=== PATIENT | male | born 1945 | race Caucasian/White ===

== ENCOUNTER 2016-10-17 14:01 | Inpatient (IN) | payer MEDICARE ==
[~2016-10-17] VITALS: Ht 182.9 cm; Wt 59.0 kg
[2016-10-17] VITALS (225 sets, daily range): BP systolic 92–101; BP diastolic 55–67; PULSE 108–113; TEMP 97.6–98.7; O2SAT 73–98
[~2016-10-17 14:01] MED LIST: ASPIRIN 32325 MG/TAB PO; ASPIRIN 81M81 MG/TA2 PO; ASPIRIN E.C. 8181 MG PO; CARDI-OMEGA1000 MG PO; COREG 25MG25 MG/TAB PO; COREG 6.256.25 MG/TA PO; DEXILANT30 MG PO; FISH OIL 1000MG1 CAP PO; FLOMAX 0.40.4 MG/CAP PO; FLORINEF ACETA0.1 MG PO; FLOVENT 110MCG7.9 GM IH; GLUCOTROL10 MG PO; INSHUMULINR SQ; K-DUR 2020 MEQ PO; K-DUR20 MEQ PO; KLOR-CON 1010 MEQ PO; KLOR-CON M2020 MEQ PO; LANTUS100 U/ML SQ; LASIX 20MG TABL20 MG PO; LIPITOR 40MG TA40 MG PO; LIPITOR20 MG PO; LIQUIFILM TEARS15 ML OU; NITROSTAT0.4 MG/TAB SL; NORCO 325 MG-51 TAB PO; NORCO 325 MG-7.1 TAB PO; NORVASC 10MG10 MG PO; NOVOLIN 70/30 710 ML SQ; NOVOLOG 100U100 U/M1 SQ; PLAVIX 75MG TAB75 MG PO; PREDNISONE10 MG PO; PREDNISONE20 MG PO; PRIL40 PO; PRILOSEC 20MG20 MG PO; PRILOSEC10 MG PO; PRINIVIL10 MG PO; PRINIVIL20 MG PO; PROAMATINE 5MG T5 MG PO; REGLAN 10MG10 MG/TAB PO; SYNTHROID0.05 MG/TA PO; ZOLOFT 50MG50 MG PO
[2016-10-17 14:13] LABS: ARTERIAL BLD GAS O2 SATURATION 86.2 % (92-100); ARTERIAL BLD GAS TCO2 CT 26.8; ARTERIAL BLOOD GAS BASE EXCESS -0.4 (-2-2); ARTERIAL BLOOD GAS HCO3 25.3 meq/L (22-26); ARTERIAL BLOOD GAS PHT 7.36 C (7.35-7.45); ARTERIAL BLOOD GAS PO2 54.1 mmHg (80-100); ARTERIAL BLOOD GAS PO2T 54.1 (80-100); ARTERIAL BLOOD GAS pH 7.36 (7.35-7.45); OXYHEMOGLOBIN 84.9 %
[2016-10-17 14:14] LABS: ATS? YES
[2016-10-17 14:25] LABS: MEAN CELL VOLUME 91 fl (80.0-100.0); MEAN CORPUSCULAR HGB CONC 34 g/dl (33.0-37.0); MEAN PLATELET VOLUME 10.3 fl (7.4-10.4); PLATELET COUNT 499 K/mm3 (130-400); RED BLOOD COUNT 3.85 M/mm3 (4.20-5.60); WHITE BLOOD COUNT 12.6 K/mm3 (4.8-10.8)
[2016-10-17 14:26] LABS: ADD PATHOLOGY DIFF REVIEW NO; HEMOGLOBIN 11.8 g/dl (13.5-18.0); MEAN CORPUSCULAR HEMOGLOBIN 31 pg (27.0-31.0)
[2016-10-17 14:36] LABS: ADJUSTED CALCIUM 10.5 mg/dL (8.4-10.2); ALBUMIN 2.8 gm/dL (3.5-5.0); BILIRUBIN,TOTAL 1.2 mg/dL (0.0-1.0); CALCIUM 9.5 mg/dL (8.4-10.2); CREATININE, serum 1.05 mg/dL (0.66-1.25); POTASSIUM 5.1 mmol/L (3.4-5.0); TOTAL PROTEIN 6.3 gm/dL (6.4-8.2)
[2016-10-17 14:36] LABS: BAND 20 % (0-10); NEUTROPHILS 68 % (42.0-75.2); PLATELET ESTIMATE INCREASED (NORMAL); TOTAL CELLS COUNTED 100
[2016-10-17] MEDS ORDERED: ATROVENT I0.2 MG/1 M IH (16:40)
[2016-10-17] MEDS ORDERED: DILAUDID 4MG TAB4 MG PO (16:40)
[2016-10-17] MEDS ORDERED: ALBUTEROL0.83 MG/ML IH (16:41)
[2016-10-18] VITALS (606 sets, daily range): BP systolic 93–153; BP diastolic 70–105; PULSE 70–122; TEMP 98.1–98.6; O2SAT 66–100
[2016-10-18 04:59] LABS: ARTERIAL BLD GAS O2 SATURATION 88.5 % (92-100); ARTERIAL BLD GAS TCO2 CT 21.7; ARTERIAL BLOOD GAS BASE EXCESS -4.9 (-2-2); ARTERIAL BLOOD GAS HCO3 20.5 meq/L (22-26); ARTERIAL BLOOD GAS PHT 7.34 C (7.35-7.45); ARTERIAL BLOOD GAS PO2 58.8 mmHg (80-100); ARTERIAL BLOOD GAS PO2T 58.8 (80-100); ARTERIAL BLOOD GAS pH 7.34 (7.35-7.45)
[2016-10-18 05:00] LABS: ALLEN TEST NO; ATS? YES
[2016-10-18 05:19] LABS: MEAN CELL VOLUME 93 fl (80.0-100.0); MEAN CORPUSCULAR HGB CONC 33 g/dl (33.0-37.0); MEAN PLATELET VOLUME 10.4 fl (7.4-10.4); PLATELET COUNT 475 K/mm3 (130-400); RED BLOOD COUNT 3.24 M/mm3 (4.20-5.60); REDCELL DISTRIBUTION WIDTH-CV 16.1 % (11.5-14.5)
[2016-10-18 05:26] LABS: HEMOGLOBIN 9.9 g/dl (13.5-18.0); MEAN CORPUSCULAR HEMOGLOBIN 31 pg (27.0-31.0)
[2016-10-18 05:27] LABS: ADD PATHOLOGY DIFF REVIEW NO
[2016-10-18 05:30] LABS: INR 1.3 (0.8-3.0); PH 5 (5-8); PROTHROMBIN TIME 14.4 SECONDS (9.7-12.8); SQUAMOUS EPITHELIAL 0-2 /hpf; URINE APPEARANCE Hazy; URINE BACTERIA None Seen /hpf; URINE BILIRUBIN Negative (NEGATIVE); URINE BLOOD Negative (NEGATIVE); URINE COLOR Amber; URINE GLUCOSE Negative (NEGATIVE); URINE KETONE Trace (NEGATIVE); URINE UROBILINOGEN Negative (NEGATIVE)
[2016-10-18 05:31] LABS: ADJUSTED CALCIUM 9.6 mg/dL (8.4-10.2); ALBUMIN 2.5 gm/dL (3.5-5.0); BILIRUBIN,TOTAL 1.1 mg/dL (0.0-1.0); CALCIUM 8.4 mg/dL (8.4-10.2); CREATININE, serum 0.88 mg/dL (0.66-1.25); MAGNESIUM 1.6 mg/dL (1.6-2.3); POTASSIUM 4.7 mmol/L (3.4-5.0); TOTAL PROTEIN 5.7 gm/dL (6.4-8.2)
[2016-10-18 05:32] LABS: AMPHETAMINE URINE NEGATIVE; BARBITURATES URINE NEGATIVE; BENZODIAZEPINES URINE NEGATIVE; BUPRENORPHINE URINE NEGATIVE; METHADONE URINE NEGATIVE; OPIATES URINE POSITIVE; OXYCODONE URINE NEGATIVE; PHENCYCLIDINE URINE NEGATIVE; PROPOXYPHENE URINE NEGATIVE; THC CANNABINOIDS URINE NEGATIVE
[2016-10-18 05:33] LABS: PARTIAL THROMBOPLASTIN TIME 48.4 SECONDS (26.0-37.0)
[2016-10-18 05:45] LABS: BAND 43 % (0-10); NEUTROPHILS 49 % (42.0-75.2); TOTAL CELLS COUNTED 100
[2016-10-19] VITALS (272 sets, daily range): BP systolic 133–147; BP diastolic 74–88; PULSE 100–119; TEMP 97.5–97.8; O2SAT 91–100
[2016-10-21 14:03] VITALS: BP 139/82; PULSE 114; TEMP 97.8
== END 2016-10-21 15:12 | disposition hospice, inpatient (51) | DRG 189 ==
LOC: COL.ER 14:01 → IMCU 16:20 → EU 17:38 → MEDICAL 10-19 15:42
PROVIDERS: Family Medicine; Internal Medicine
DX: J96.21 Acute and chronic respiratory failure with hypoxia (principal); C34.32 Malignant neoplasm of lower lobe, left bronchus or lung; C79.89 Secondary malignant neoplasm of other specified sites; C79.51 Secondary malignant neoplasm of bone; Z68.1 Body mass index [BMI] 19.9 or less, adult; Z66 Do not resuscitate; Z51.5 Encounter for palliative care; I25.10 Atherosclerotic heart disease of native coronary artery without angina pectoris; J44.9 Chronic obstructive pulmonary disease, unspecified; E11.42 Type 2 diabetes mellitus with diabetic polyneuropathy; R63.4 Abnormal weight loss; Z95.1 Presence of aortocoronary bypass graft; E87.5 Hyperkalemia
CPT/HCPCS: 99223-AI; 99231-AI; 99232-AI; 99233-AI; 99239; A4315; J0696; J1650; J1940; J1956; J2060; J2543; J2930; J3010; J7030; J7050